=== PATIENT | male | born 2000 | race Two or more races ===

== ENCOUNTER 2023-08-27 18:17 | Emergency (ER) | payer OTHER ==
[~2023-08-27] VITALS: Ht 167.6 cm; Wt 60.4 kg
[~2023-08-27 18:17] MED LIST: IBUP100S11 PO
[2023-08-27] MEDS ORDERED: IBUP-1455 PO (19:37)
[2023-08-27] MEDS ORDERED: CYCL-837 PO (19:37)
[2023-08-27] MEDS: KETOROLAC TROMETH 30 MG/ML 1ML VIAL IM ONE (19:50)
[2023-08-27 20:10] VITALS: BP 124/70; PULSE 83; RESP 17; TEMP 99.8; O2SAT 98
== END 2023-08-27 20:09 | disposition home or self-care (01) ==
LOC: ER 18:17
DX: S20.219A Contusion of unspecified front wall of thorax, initial encounter (principal); S09.90XA Unspecified injury of head, initial encounter; W20.8XXA Other cause of strike by thrown, projected or falling object, initial encounter; Y93.89 Activity, other specified; Y92.89 Other specified places as the place of occurrence of the external cause; Y99.8 Other external cause status
CPT/HCPCS: 70450; 71250; 96372; 99285; J1885